=== PATIENT | female | born 1970 | race Caucasian/White ===

== ENCOUNTER 2021-08-17 08:42 | Inpatient (IN) | payer MEDICAID ==
[~2021-08-17] VITALS: Ht 170.2 cm; Wt 56.9 kg
--- OUTSIDE RECORDS SUMMARY | 2021-08-17 11:26 | XMS ---
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 EEzequiel VISIT COUNT (12 MO.) [address] TOTAL 3 NOTE: Visits indicate total known visits. ED/C VISIT TRACKING (12 MO.) 08/17/2021 08:43 DEMETRIUS Patel TYPE: Emergency COMPLAINT: - SEIZURE 08/13/2021 19:24 [facility]. TYPE: Emergency DIAGNOSES: - Alcohol use, unspecified with intoxication, unspecified - EMS - Altered Mental Status 11/11/2020 08:46 [facility]. TYPE: Emergency DIAGNOSES: - RT - Shoulder Injury - Fall on same level, unspecified, initial encounter - Nondisplaced fracture of lateral end of right clavicle, initial encounter for closed fracture - RT Shoulder INPATIENT VISIT TRACKING (12 MO.) No inpatient visits to display in this time frame [email or web address]
--- NOTE | 2021-08-17 12:45 | NUR ---
REPORT RECIEVED, CARE OF PT ASSUMED AT THIS TIME. PT TRANSPORTED TO CCU FROM ED ON HEATING MECHANIC BY TOBACCO CLASSER ADA. PT AMBULATED FROM STRETCHER TO THE BED WITH TWO PERSON ASSIST. PT WEAK AND IMPULSIVE. IV POTASSIUM INFUSING UPON PT ARRIVAL. THIS RN REMAINS AT BEDSIDE TO COMPLETE ASSESSMENT.
--- NOTE | 2021-08-17 13:22 | NUR ---
INITIAL ASSESSMENT COMPLETED. PT DROWSY, AWAKENS TO VOICE. ANSWERING SOME QUESTIONS APPROPRAITELY, OCCASIONAL MUMBLING. PT REACHING IN AIR AT UNSEEN OBJECTS. DENIES HEADACHE. MILD TREMORS NOTED. CIWA SCORE OF SEVEN AT THIS TIME. PT UNABLE TO ANSWER MANY QUESTIONS ABOUT MEDICAL HISTORY DUE TO DROWSINESS. IV FLUIDS WITH POTASSIUM NOW INFUSING. BED ALARM IN PLACE AND SIDE RAILS UP FOR SAFETY. CALL LIGHT WITHIN REACH. WILL CONTINUE TO CLOSELY MONITOR FOR SEIZURE ACTIVITY AND SIGNS OF ETOH WITHDRAWAL.
--- NOTE | 2021-08-17 14:30 | NUR ---
PT CIWA SCORE OF 11. COMPLAINS OF A HEADACHE AND GENERALIZED WEAKNESS. 2 MG OF IV ATIVAN GIVEN. PT UP TO BSC. ONE PERSON ASSIST REQUIRED. PT REMAINS IMPULSIVE. BACK IN BED, ALARM IN PLACE. WILL CONTINUE TO MONITOR.
--- NOTE | 2021-08-17 15:59 | NUR ---
SECOND IV INITIATED IN RIGHT HAND. WELL TOLERATED BY PT. IV MAGNESIUM NOW INFUSING. CIWA SCORE OF 9 AT THIS TIME. CALL LIGHT WITHIN REACH. BED ALARM IN PLACE. WILL CONTINUE TO MONITOR.
--- NOTE | 2021-08-17 17:32 | NUR ---
KCL/LIDOCAINE IN D5 FINISHED INFUSION. DOCUMENTED VOLUME INFUSED, IV IN LEFT WR IS NOW SALINE LOCKED WITH CHLORAHEXADINE CAP. PT IS ASLEEP IN BED, BED RAILS UP, CALL LIGHT WITHIN REACH, BED ALARM ON. WILL CONTINUE TO MONITOR.
--- NOTE | 2021-08-17 18:20 | NUR ---
CALLED [facility] AND SPOKE WITH CAPRICE ABOUT ACQUIRING THE PT'S PHONE AND IPAD SHE ASKED ABOUT. SHE LET ME KNOW IT IS AGAINST THEIR POLICY TO RELEASE THE ITEMS AND THE PT WAS LET KNOW THIS INFORMATION. WILL LET PT KNOW.
--- NOTE | 2021-08-17 18:37 | NUR ---
PT IS DRINKING WATER AND CRANBERRY JUICE AND TRIED SOME CHICKEN BROTH. PT REQUIRES STANDBY ASSISTANCE TO BEDSIDE COMMODE, DOCUMENTED 300 ML OUTPUT. PT IS NOW WATCHING TV IN BED, BED RAILS UP, CALL LIGHT WITHIN REACH, BED ALARM ON. WILL CONTINUE TO MONITOR.
--- NOTE | 2021-08-17 18:57 | NUR ---
SPOKE TO ANYA VASQUES AT [facility]. STATES PATIENTS FAMILY HAS REQUESTED NOT TO SPEAK TO HER; ALSO STATES THEY HAVE NO PAST MEDICAL HISTORY INFORMATION ON THE PT.
--- NOTE | 2021-08-17 19:01 | NUR ---
PT ATE 75% ON CLEAR LIQUID TRAY. AWAKE IN BED, ASKING FOR PAPER AND PENCIL. DENIES PAIN OR HEADACHE AT THIS TIME.
--- NOTE | 2021-08-17 19:30 | NUR ---
REPORT RECEIVED FROM ISABELLA JOYNER. PT IS SITTING UP IN HIS WHEELCHAIR WITH SEATBELT ON. FATHER IN ROOM. ON 50% O2 VIA TRACH MASK, SPO2 99%. PT IS ALERT AND AWAKE AND RESPONDS WITH BLINKING HIS EYES WITH PURPOSE IN RESPONSE TO QUESTIONS. TUBE FEEDING IS INFUSING INTO GTUBE. IVF INFUSING AT 75ML/HR.
--- NOTE | 2021-08-17 19:54 | NUR ---
IN TO DO ASSESSMENT, LUNGS HAVE RHONCHI THROUGHOUT AND EXP WHEEZE ON LEFT SIDE. PLAN FOR THE NIGHT DISCUSSED WITH PARENTS, PLAN TO FINISH TUBE FEEDING THEN MOVE PATIENT TO BED AND DO CPT AND CHANGE ATTENDS. RT IN TO DO NEB TX AND DISCUSS RT PLAN FOR THE NIGHT WITH HOPE OF TITRATING O2 DOWN.
--- NOTE | 2021-08-17 19:55 | NUR ---
ARRIVED TO SHIFT, RECIEVED REPORT FROM DAY SHIFT, FOCUSED ASSESSMENT COMPLETED, LABS, ORDERS, AND EMAR REVIEWED, FULL HEAD TO TOE ASSESSMENT COMPLETED, MEDS GIVEN PER MAR, ASSISTED PT TO BSC TO VOID, PT PLACED BACK IN BED IN POSITION OF COMFORT, SIDE RAILS RAISED FOR SAFETY, CALL LIGHT WITHIN REACH, VEGGIE BROTH BROUGHT TO PT WITH LID
--- NOTE | 2021-08-17 20:52 | NUR ---
ASSISTED PT TO THE CHAIR VIA SBA, FREQUENT REMINDERS TO FOLLOW DIRECTION, PT FOLLOWS DIRECTION AFTER REMINDER, EDUCATION PT ON IMPORTANCE OF FALL PREVENTION AND TO CALL PRIOR TO ATTEMPTING TO STAND OR SOMETHING TO DROPS TO PLEASE CALL STAFF FIRST BEFORE BENDING OVER TO PICK IT UP. PT VERBALIZES UNDERSTANDING. WARM BLANKET APPLIED, PTS WATER AND PAPERS MOVED TO CHAIR SIDE ALONG WITH ROOM PHONE AND CALL LIGHT. CHAIR IS LOCKED, PT IN VIEW FROM NURSES STATION
--- NOTE | 2021-08-17 21:18 | NUR ---
ASSISTED PT BACK TO BED FROM CHAIR, PT HAS DIFFICULTY WAITING AND FOLLOWING DIRECTION, EDUCATION AGAIN ON FALL PREVENTION AND IMPORTANCE OF FOLLOWING DIRECTIONS DURING AMBULATION AND TRANSFERS. PT STATES SHE FORGOT AND VERBALIZES UNDERSTANDING, WILL CONITNUE TO EDUCATE PT ON FALL PREVENTIOIN AND SAFETY. BROUGHT PT LEMON SORBET AND CRANBERRY JUICE WITH SPRITE, SIDE RAILS RAISED, CALL LIGHT WITHIN REACH, NO FURTHER NEEDS FROM PT AT THIS TIME
--- NOTE | 2021-08-17 21:50 | NUR ---
ASSISTED PT TO BSC TO VOID, PT BACK TO BED IN POSITION OF COMFORT, DID WELL FOLLOWING DIRECTIONS THIS TIME. PT UNABLE TO REMEMBER EVENTS OF THIS MORNING, WAS UNAWARE SHE IS IN THE HOSPITAL AND NOT THE [facility]. CURRENT ILLNESS AND EVENTS EXPLAINED TO PT, PT UPSET HOWEVER CONSOLABLE AND APPROPIATE. RN ASSISTED PT WITH PHONE TO CALL FAMILY, SIDE RAILS RAISED FOR SAFETY, CALL LIGHT WITHIN REACH
--- NOTE | 2021-08-18 01:37 | NUR ---
PT REMAINS ALSEEP, FREQUENT PVC'S ON DNA ANALYST, VITALS WNL, SIDE RAILS UP FOR SAFETY, CALL LIGHT WITHIN REACH
--- NOTE | 2021-08-18 02:11 | NUR ---
HEARD NOISE IN PT ROOM, IN TO CHECK ON HER-FOUND HER UP OUT OF BED STRETCHING IV TUBING AND TRYING TO GET ONTO BSC. ASSISTED HER WITH BSC AND VOIDING THEN ASSITED HER BACK TO BED, VERY WEAK AND SHAKY ON HER FEET. POSITIONED BACK IN BED, REMINDED HER TO CALL WHEN SHE NEEDS TO GET UP, CALL LIGHT IN REACH. BED ALARM PLACED. 2MG IV SCHEDULED ATIVAN GIVEN.
--- NOTE | 2021-08-18 02:15 | NUR ---
HEARD NOISE IN PT ROOM, IN TO CHECK ON HER-FOUND HER UP OUT OF BED STRETCHING IV TUBING AND TRYING TO GET ONTO BSC. ASSISTED HER WITH BSC AND VOIDING THEN ASSITED HER BACK TO BED, VERY WEAK AND SHAKY ON HER FEET. PT HAD BEEN INCONTINENT ON FLOOR AND LINENS, LINENS CHANGED, PT ASSISTED BACK TO BED. BED ALARM PLACED. CALL LIGHT IN REACH AND PT REMINDED TO USE IT WHEN SHE NEEDS TO GET UP AND NOT TO GET UP ALONE. PT AGREES THEN LIES HEAD BACK TO SLEEP. 2MG SCHEDULED IV ATIVAN GIVEN.
--- NOTE | 2021-08-18 05:44 | NUR ---
oil field laborer in drawing labs comes out to nurse station to state pt has pulled her iv,iv seen tip intact from pt right hand, crow and mary applied.
--- NOTE | 2021-08-18 06:26 | NUR ---
PT RESTING IN BED, EDUCATED ON IMPORTANCE OF FALL PREVENTION AGAIN, BED ALARM ON, SIDE RAILS UP FOR SAFETY, CALL LIGHT WITHIN REACH, PT IN VIEW FROM NURSES STATION, MEDS GIVEN PER JUN, LABS REVIEWED, AWAITING DAY SHIFT FOR REPORT
--- NOTE | 2021-08-18 07:45 | NUR ---
IN ROOM FOR MEDICATION ADMINISTRATION AND ASSESSMENT. PT DROWSY BU AROUSABLE. ORIENTED TO SELF, PLACE, AND SITUATION. PT REMAINS FORGETFUL AND IMPULSIVE.LUNGS SOUND CLEAR. MILD TREMORS NOTED WITH ACITIVITY. PT DENIES HEADACHE OR ANY OTHER PAIN. DISCUSSED PLAN OF CARE FOR DAY. CALL LIGHT WITHN REACH. WILL CONTINUE TO MONITOR.
--- NOTE | 2021-08-18 08:20 | NUR ---
PATIENT AWAKE IN BED AND ON THE PHONE. VITALS AND I&OS CHARTED. 1PA TO BSC FOR VOID. PATIENT VERY SHAKEY AND WEAK. PATIENT NOW UP IN CHAIR WASHING FACE AND HANDS. PATIENT VERY EMOTIONAL AND STATES HER RENT IS DUE TODAY BUT SHE DOESN'T HAVE HER WALLET. PATIENT STATES SHE LAST HAD HER WALLET AND IPAD "AT THE FIRST INTAKE DEPT" HER AT THIS HOSPITAL. THESE ITEMS ARE NOT IN HER PERSONAL BELONGINGS. CALL LIGHT IS EASY REACH. NO OTHER NEEDS AT THIS TIME
--- NOTE | 2021-08-18 08:40 | NUR ---
Spoke pt patient. She is up in a chair, very jittery. Asking about her where her belongings are. Per RN they remain at [facility] and they do not release until pt checks out. Pt stating she does not want to return to [facility] as it is too restrictive. Let her know I can call [facility], but she will need to return if she wants her phone, tablet, and other belongings. Pt frequently crying throughout our conversations, she does state she has a son, Tucker, does not know his phone number, and a dacarsone [employer] [place] [phone]. Pt states she would like to go to a rehab and leave detox. She is willing to speak with ADRIAN. I called [facility] and they will have someone from the [place] area visit her.
--- NOTE | 2021-08-18 09:22 | NUR ---
DR CORADO IN TO ASSESS PT. PLAN OF CARE FOR DAY ESTABLISHED. PT REMAINS CONFUSED AND IMPULSIVE, ATTEMPTING TO GET OUT OF CHAIR WITHOUT ASSISTANCE. REORIENTED PT. PT NOW BACK IN BED, CALL LIGHT WITHIN REACH AND BED ALARM IN PLACE. WILL CONTINUE TO MONITOR.
--- NOTE | 2021-08-18 09:52 | NUR ---
DAKOTA CANSECO TO ASSESS PT AND IDENTIFY POTENTIAL NEEDS AT TIME OF DISCHARGE.
--- NOTE | 2021-08-18 10:00 | NUR ---
Saw Itzel from [facility] in the tom. He was able to visit with Elin. She is now wanting to return to [facility]. She is interested in treatment and he feels they can get pt into treatment center here in [place]. Dr. Stinson present and plans on discharge of this pt today. I called [facility] and spoke with Della. Pt may return, they need a medical clearance, rx if meds are changing, and they can transport. Updated, plans on pt remaining on librium and this is one of their standing meds. Received their fax number and will fax clinical notes, medical release, and orders when pt is ready for dc. Facility fax [phone].
--- NOTE | 2021-08-18 10:01 | NUR ---
LO PEER MENTOR IN THE ROOM WITH PT.
[2021-08-18] MEDS ORDERED: CHLORDIAZEPOXID25 MG PO (10:15)
[2021-08-18] MEDS ORDERED: VITAMIN B-1100 M1 PO (10:16)
--- NOTE | 2021-08-18 11:05 | NUR ---
PLAN FOR PATIENT TO DISCHARGE BACK TO [facility] THIS AFTERNOON ESTABLISHED WITH PATIENT, DR CORADO, CURTAIN INSPECTOR AND THIS RN. TELEMETRY DC'D. IV FLUIDS DC'D. PT NOW BEING ASSISTED WTIH A BED BATH BY CHIEF DISPATCHER AT THIS TIME.
--- NOTE | 2021-08-18 11:08 | NUR ---
Dr. Stinson updated and is working on dc. Spoke with aLly Tran. Pt will eat lunch before DC.
--- NOTE | 2021-08-18 11:54 | NUR ---
PT ATE SOME LUNCH. DISCHARGE INSTRUCTIONS REVIEWED AT THIS TIME. ALL PT QUESTIONS ANSWERED. [facility] CALLED TO PROVIDE A RIDE TO [facility].
--- NOTE | 2021-08-18 12:05 | NUR ---
THIS LOG DECKMAN IN ROOM TO ASSIST PATIENT WITH BRIEF WALK, PATIENT FEELING ANXIOUS AND "NEEDS TO MOVE." RN AWARE. D/C VITALS CHARTED. PATIENT BACK TO BED, BED ALARM ON FOR SAFETY.
== END 2021-08-18 12:50 | DRG 897 ==
LOC: ED 08:42 → CCU 12:09
PROVIDERS: ADMIT Internal Medicine; ATTEND Internal Medicine
PROC: HZ2ZZZZ Detoxification Services for Substance Abuse Treatment (ICD-10-PCS; principal; 2021-08-17)
DX: F10.239 Alcohol dependence with withdrawal, unspecified (principal); G40.509 Epileptic seizures related to external causes, not intractable, without status epilepticus; E87.1 Hypo-osmolality and hyponatremia; D61.818 Other pancytopenia; E83.42 Hypomagnesemia; Z20.822 Contact with and (suspected) exposure to COVID-19; E87.6 Hypokalemia; D46.Z Other myelodysplastic syndromes; M19.90 Unspecified osteoarthritis, unspecified site; Z90.49 Acquired absence of other specified parts of digestive tract; Z98.890 Other specified postprocedural states
CPT/HCPCS: 36415; 71045; 73502; 80048; 80053; 81001; 83690; 83735; 84703; 85025; 85060; 87502; 96374; 96375; 96376; 99285-25; A9270; C9803; G0480; J2060; J3411; J3475; J3480; J7030; J7060; J7120; J7121; U0003